=== PATIENT | female | born 1945 | race Hispanic/Latino ===

== ENCOUNTER 2017-09-14 15:47 | Emergency (ER) | payer BC, MEDICARE ==
[2017-09-14] MEDS ORDERED: NORCO 5/325 PO ONE (17:32)
--- NOTE | 2017-09-14 17:45 | XRay Report ---
FINAL REPORT EXAM: XR SHOULDER 2+V RT HISTORY: fall pain COMPARISON: None available. FINDINGS: Two views of right shoulder obtained. There is a transverse fracture of the humeral neck. Vertical fracture greater tuberosity. There is lateral angulation of the distal humeral diaphyseal fracture segment. No dislocation of the humeral head relative the glenoid rim. Mild osteophyte of the AC joint. IMPRESSION: Comminuted fracture of the humeral head neck. No dislocation of the humeral head.
--- NOTE | 2017-09-14 18:06 | Emergency Department Report ---
ED General Adult HPI - General Chief complaint: Extremity Injury, Upper Stated complaint: FALL Time Seen by Provider: 09/14/17 16:40 Source: patient, EMS Mode of arrival: Stretcher Limitations: No Limitations - History of Present Illness Initial comments: The patient tripped on a cord and injured her right shoulder at home. She complains of shoulder injury. She was given Toradol in route by the EMS. She states this was effective in pain management. She denies any other injury. She states that she has some chronic neck problems but no neck pain whatsoever. She can move her neck freely without discomfort. She did not hit her head. She states that she was feeling well prior to the simple ground-level fall and otherwise there after except for her shoulder injury. -: Gradual Location: right, upper extremity Radiation: non-radiation Quality: aching Consistency: constant Improves with: none Worsens with: movement Associated Symptoms: denies other symptoms Treatments Prior to Arrival: none - Related Data Previous Rx's Medication Instructions Recorded Last Taken Type HYDROcodone/APAP 5-325 [Fillmore 1 each PO Q4HR PRN #20 tablet 02/08/15 Unknown Rx 5-325 mg TAB] Ibuprofen [Motrin 800 MG tab] 800 mg PO Q8HR #30 tablet 02/08/15 Unknown Rx ALBUTEROL Inhaler [ProAir HFA 2 puff IH QID PRN #1 inhalation 03/22/15 Unknown Rx Inhaler] Levofloxacin [Levaquin TAB] 500 mg PO QDAY #7 tablet 03/22/15 Unknown Rx predniSONE [Deltasone] 50 mg PO QDAY #7 tab 03/22/15 Unknown Rx HYDROcodone/APAP 5-325 [Fillmore 1 each PO Q6HR PRN #14 tablet 09/14/17 Unknown Rx 5/325] Allergies Allergy/AdvReac Type Severity Reaction Status Date / Time metoclopramide HCl Allergy Hives Verified 02/08/15 11:10 [From Reglan] ranitidine HCl [From Zantac] Allergy Hives Verified 02/08/15 11:10 ED Review of Systems ROS: Stated complaint: FALL Other details as noted in HPI Constitutional: denies: chills, fever Eyes: denies: eye pain, eye discharge, vision change ENT: denies: ear pain, throat pain Respiratory: denies: cough, shortness of breath, wheezing Cardiovascular: denies: chest pain, palpitations Endocrine: no symptoms reported Gastrointestinal: denies: abdominal pain, nausea, diarrhea Genitourinary: denies: urgency, dysuria, discharge Musculoskeletal: as per HPI, arthralgia. denies: back pain Skin: denies: rash, lesions Neurological: denies: headache, weakness, paresthesias Psychiatric: denies: anxiety, depression Hematological/Lymphatic: denies: easy bleeding, easy bruising ED Past Medical Hx - Past Medical History Additional medical history: chronic back pain - Surgical History Additional Surgical History: hysterectomy. lumpectomy - Social History Smoking Status: Never Smoker Substance Use Type: None - Medications Home Medications: Home Medications Medication Instructions Recorded Confirmed Last Taken Type HYDROcodone/APAP 5-325 [Fillmore 1 each PO Q4HR PRN #20 tablet 02/08/15 Unknown Rx 5-325 mg TAB] Ibuprofen [Motrin 800 MG tab] 800 mg PO Q8HR #30 tablet 02/08/15 Unknown Rx ALBUTEROL Inhaler [ProAir HFA 2 puff IH QID PRN #1 inhalation 03/22/15 Unknown Rx Inhaler] Levofloxacin [Levaquin TAB] 500 mg PO QDAY #7 tablet 03/22/15 Unknown Rx predniSONE [Deltasone] 50 mg PO QDAY #7 tab 03/22/15 Unknown Rx HYDROcodone/APAP 5-325 [Fillmore 1 each PO Q6HR PRN #14 tablet 09/14/17 Unknown Rx 5/325] ED Physical Exam - General Limitations: No Limitations General appearance: alert, in no apparent distress - Head Head exam: Present: atraumatic, normocephalic. Absent: normal inspection - Eye Eye exam: Present: normal appearance, PERRL, EOMI. Absent: scleral icterus - ENT ENT exam: Present: normal exam, mucous membranes moist - Neck Neck exam: Present: normal inspection, full ROM. Absent: tenderness, meningismus, lymphadenopathy, thyromegaly - Respiratory Respiratory exam: Present: normal lung sounds bilaterally. Absent: respiratory distress - Cardiovascular Cardiovascular Exam: Present: regular rate, normal rhythm. Absent: systolic murmur, diastolic murmur, rubs, gallop - GI/Abdominal GI/Abdominal exam: Present: soft, normal bowel sounds. Absent: distended, tenderness, guarding, rebound, rigid - Extremities Exam Extremities exam: Present: other (apparent deformity of the right shoulder. The glenoid fossa appears to be full. Neurovascular exam is intact.) - Back Exam Back exam: Present: normal inspection. Absent: CVA tenderness (R), CVA tenderness (L), muscle spasm, paraspinal tenderness, vertebral tenderness - Neurological Exam Neurological exam: Present: alert, oriented X3, CN II-XII intact. Absent: motor sensory deficit - Psychiatric Psychiatric exam: Present: normal affect, normal mood - Skin Skin exam: Present: warm, dry, intact, normal color. Absent: rash ED Course Vital Signs 09/14/17 16:21 Temperature 97.8 F Pulse Rate 57 L Respiratory 18 Rate Blood Pressure 135/52 [Left] O2 Sat by Pulse 96 Oximetry - Reevaluation(s) Reevaluation #1: The patient continued to do well on reexamination. She was placed in a shoulder immobilizer. She was given additional oral analgesia. She is referred to the orthopedist on-call and discharged. 09/14/17 18:05 ED Medical Decision Making - Radiology Data interpreted by me: Displaced fracture of the proximal humerus, humeral neck. Critical care attestation.: If time is entered above; I have spent that time in minutes in the direct care of this critically ill patient, excluding procedure time. ED Disposition Clinical Impression: Fracture, shoulder Qualifiers: Encounter type: initial encounter Fracture type: closed Laterality: right Qualified Code(s): S42.91XA - Fracture of right shoulder girdle, part unspecified, initial encounter for closed fracture Disposition: DC- TO HOME OR SELFCARE Is pt being admited?: No Does the pt Need Aspirin: No Condition: Stable Instructions: Arm Fracture in Adults (ED) Additional Instructions: Remain in shoulder immobilizer. See orthopedist on Saturday. Fillmore as needed for pain. Be very careful when you ambulate only with assistance. Prescriptions: HYDROcodone/APAP 5-325 [Fillmore 5/325] 1 each PO Q6HR PRN #14 tablet PRN Reason: Pain Referrals: PRIMARY CARE, [Primary Care Provider] - 3-5 Days Time of Disposition: 18:08
[2017-09-14 18:38] VITALS: BP 155/57
== END 2017-09-14 18:43 | disposition home or self-care (01) ==
LOC: ED 15:47
DX: S42.91XA Fracture of right shoulder girdle, part unspecified, initial encounter for closed fracture (principal); W18.30XA Fall on same level, unspecified, initial encounter; Y93.89 Activity, other specified; Y92.89 Other specified places as the place of occurrence of the external cause; Y99.8 Other external cause status